=== PATIENT | female | born 1960 | race Caucasian/White ===

== ENCOUNTER 2016-06-25 11:12 | Emergency (ER) | payer OTHER ==
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
[2016-06-25] MEDS ORDERED: HYDROCODONE/ACETAMINOPHEN 5-325 MG TABLET PO ONE (12:24)
[2016-06-25] MEDS ORDERED: CYCLOBENZAPRINE HCL 10 MG TABLET PO ONE ×2 (12:24→12:59)
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
[2016-06-25 13:50] VITALS: BP 137/78
== END 2016-06-25 13:50 | disposition home or self-care (01) ==
LOC: ER 11:12
DX: S16.1XXA Strain of muscle, fascia and tendon at neck level, initial encounter (principal); M62.838 Other muscle spasm; M54.89 Other dorsalgia; F17.200 Nicotine dependence, unspecified, uncomplicated; V49.40XA Driver injured in collision with unspecified motor vehicles in traffic accident, initial encounter; Z91.040 Latex allergy status; Z88.0 Allergy status to penicillin
CPT/HCPCS: 72050; 99283

== ENCOUNTER 2018-09-21 07:57 | Emergency (ER) | payer OTHER ==
[2018-09-21] MEDS ORDERED: OXYCODONE-ACETAMINOPHEN 5-325 MG TABLET PO ONE (08:22)
--- NOTE | 2018-09-21 08:28 | ER Document Report ---
ED General - General Chief Complaint: Shoulder Pain Stated Complaint: SHOULDER PAIN Time Seen by Provider: 09/21/18 08:14 Primary Care Provider: ESTEFANIA SANTIAGO MD [Primary Care Provider] - Follow up in 3-5 days TRAVEL OUTSIDE OF THE [place] IN LAST 30 DAYS: No - HPI Notes: Patient is a 58-year-old female that presents to the emergency department for chief complaint of scapular pain. Patient states for the last 3 weeks she has had sharp nonradiating pain in her left scapular region. It is worse when she lifts something up off of the ground lift something heavy. She states that it has been intermittent initially but the pain is becoming more severe and constant over the last 3 days. She states that she has had it continuously for the last 3 days but it became more worse after lifting a heavy object at home this morning. She does have reproduction of the pain with movement of her left arm. She denies any associated shortness of breath, palpitations or chest pain. She denies any direct injury or trauma to the area. She has been taking a muscle relaxer and ibuprofen at home which does give her relief. Patient does state that she smokes and has asthma and d oes cough daily. She has reproduction of the pain with coughing as well. Patient denies any family or personal history of DVT/PE, recent leg edema, history of cancer, estrogen use, hospitalizations recently, or recent travel. Past Medical History: Asthma Past Surgical History: Reviewed in chart Social History: Daily tobacco Family History: Reviewed and noncontributory for presenting illness Allergies: Reviewed, see documented allergy list. REVIEW OF SYSTEMS: CONSTITUTIONAL : No fever No chills No diaphoresis No recent illness EENT: No vision changes No congestion No sore throat CARDIOVASCULAR: No chest pain No palpitations RESPIRATORY: No shortness of breath cough No difficulty breathing GASTROINTESTINAL: No abdominal pain No nausea No vomiting No diarrhea GENITOURINARY: No dysuria No hematuria No difficulty urinating MUSCULOSKELETAL: back pain No leg pain No arm pain SKIN: No rashes No lesions LYMPHATIC: No swollen, enlarged glands. NEUROLOGICAL: No lightheadedness No headache No weakness No paresthesias PSYCHIATRIC: No anxiety No depression PHYSICAL EXAMINATION: Vital signs reviewed, nursing noted reviewed. GENERAL: Well-appearing, well-nourished and in no acute distress. HEAD: Atraumatic, normocephalic. EYES: Eyes appear normal, extraocular movements intact, sclera anicteric, conjunctiva are normal. ENT: nares patent, oropharynx clear without exudates. Moist mucous membranes. NECK: Normal range of motion, supple without lymphadenopathy LUNGS: Breath sounds clear to auscultation bilaterally and equal. No wheezes rales or rhonchi. HEART: Regular rate and rhythm without murmurs ABDOMEN: Soft, nontender, normoactive bowel sounds. No rebound, guarding, or rigidity. No masses appreciated. EXTREMITIES: Normal left shoulder exam, nontender, good range of motion, no pitting or edema. Back: No midline thoracic or lumbar tenderness. Normal range of motion of the spine. Focal tenderness over thoracic rib 4 just medial to the scapula with no overlying erythema or crepitus. No obvious deformity. No scapular tenderness or winging. NEUROLOGICAL: No focal neurological deficits. Moves all extremities spontaneously Motor and sensory grossly intact on exam. PSYCH: Normal mood, normal affect. SKIN: Warm, Dry, normal turgor, no rashes or lesions noted on exposed skin - Related Data Allergies/Adverse Reactions: ephedrine [From Tedral] Allergy (Verified 09/21/18 07:58) latex Allergy (Verified 09/21/18 07:58) Penicillins Allergy (Verified 09/21/18 07:58) phenobarbital [From Tedral] Allergy (Verified 09/21/18 07:58) theophylline [From Tedral] Allergy (Verified 09/21/18 07:58) Past Medical History - Social History Smoking Status: Current Every Day Smoker Family History: Reviewed & Not Pertinent Pulmonary Medical History: Reports: Hx Asthma Renal/ Medical History: Denies: Hx Peritoneal Dialysis Past Surgical History: Reports: Hx Appendectomy, Hx Section, Hx Nose Surgery - Immunizations Hx Diphtheria, Pertussis, Tetanus Vaccination: Yes Physical Exam - Vital signs Vitals: Temp Pulse Resp BP Pulse Ox 97.6 F 82 18 163/120 H 98 09/21/18 08:03 09/21/18 08:03 09/21/18 08:03 09/21/18 08:03 09/21/18 08:03 Course - Re-evaluation Re-evalutation: 09/21/18 08:25 Vitals reviewed. Nursing notes reviewed. Patient's blood pressure was elevated at presentation. She states that she does not have a history of hypertension but has had elevated blood pressures when in pain previously. She was uncomfortable appearing and given Percocet for pain in the ER. She has focal tenderness over her posterior rib for and x-ray will be obtained to evaluate for possible underlying fracture caused by her frequent coughing. Patient is otherwise stable and afebrile. I do not clinically suspect PE 09/21/18 09:34 X-ray of the ribs shows no acute underlying fracture or pneumothorax. Patient is otherwise oxygenating well on room air and in no acute distress. Her symp toms are reproducible with palpation and likely musculoskeletal in nature. She will be discharged home and encouraged to take anti-inflammatory medicines as well as apply ice or heat to the affected area. She will follow with primary care for further management if needed. Ribs w/Chest X-Ray 09/21/18 08:22 IMPRESSION: NO PNEUMOTHORAX. NO DISPLACED RIB FRACTURES. - Vital Signs Vital signs: Temp Pulse Resp BP Pulse Ox 97.6 F 82 18 179/103 H 98 09/21/18 08:03 09/21/18 08:03 09/21/18 08:03 09/21/18 08:17 09/21/18 08:03 Discharge - Discharge Clinical Impression: Rib pain on left side, Elevated blood pressure reading Condition: Stable Disposition: HOME, SELF-CARE Instructions: Rib Injuries and Fractures ([facility]) Additional Instructions: Your tenderness is located directly over 1 of your ribs. There are a lot of nerves around your ribs which is likely causing your severe pain. Do not do any heavy lifting with your left arm. Apply ice to the affected area 2-3 times daily. Continue taking ibuprofen as directed on the label. Follow with your primary care provider for possible physical therapy referral if symptoms are continuing. Please return to the emergency department if you have any worsening, or concern of your symptoms. Please return to the emergency department if you develop chest pain, difficulty breathing, severe abdominal pain, or ongoing vomiting. Please follow-up with your primary care physician in 2-3 days and any other recommended physicians. If prescribed, take all medications as directed. If you have any questions or concerns do not hesitate to return the emergency department for evaluation. Please have your primary care doctor reevaluate your blood pressure. It was elevated today which may be related to your pain and needs to be rechecked in the primary care doctor office Forms: Elevated Blood Pressure Referrals: ESTEFANIA SANTIAGO MD [Primary Care Provider] - Follow up in 3-5 days
--- NOTE | 2018-09-21 09:05 | RADIOLOGY REPORT (SQ) ---
EXAM DESCRIPTION: RIBS LEFT W/PA CHEST COMPLETED DATE/TIME: 09/21/2018 8:45 am REASON FOR STUDY: posterior rib pain COMPARISON: None. TECHNIQUE: Frontal view of the chest and additional views of the left ribs acquired. NUMBER OF VIEWS: Three view. LIMITATIONS: None. FINDINGS: FRONTAL CXR: No pneumothorax. No pleural effusion. No atelectasis or infiltrates. RIBS: No displaced rib fractures. No lytic or blastic bony lesions. OTHER: No other significant finding. IMPRESSION: NO PNEUMOTHORAX. NO DISPLACED RIB FRACTURES. COMMENT: SITE OF TRAUMA/COMPLAINT MARKED/STAMP COMPLETED: YES. TECHNICAL DOCUMENTATION: JOB ID: [id number] [employer]- All Rights Reserved Reading location - IP/workstation name: [email or web address]
[2018-09-21 09:35] VITALS: BP 138/87
== END 2018-09-21 09:56 | disposition home or self-care (01) ==
LOC: ER 07:57
DX: M25.512 Pain in left shoulder (principal); R03.0 Elevated blood-pressure reading, without diagnosis of hypertension; J45.909 Unspecified asthma, uncomplicated; Z91.040 Latex allergy status; Z88.0 Allergy status to penicillin; Z88.8 Allergy status to other drugs, medicaments and biological substances; F17.200 Nicotine dependence, unspecified, uncomplicated
CPT/HCPCS: 99283